=== PATIENT | male | born 1930 | race Caucasian/White ===

== ENCOUNTER 2018-07-18 19:50 | Emergency (ER) | payer OTHER, MEDICAID ==
[~2018-07-18] VITALS: Ht 167.6 cm; Wt 88.5 kg
[2018-07-18 19:52] VITALS: BP 118/70
[2018-07-18] MEDS ORDERED: TAMS0.4C96 PO (19:59)
[2018-07-18] MEDS ORDERED: VITD1000 PO (19:59)
[2018-07-18] MEDS ORDERED: LISI10TA11 PO (19:59)
[2018-07-18] MEDS ORDERED: ATOR40TA PO (19:59)
[2018-07-18] MEDS ORDERED: CARV3.12 PO (19:59)
[2018-07-18] MEDS ORDERED: GABA300C PO (19:59)
[2018-07-18] MEDS ORDERED: IMO2 PO (19:59)
[2018-07-18] MEDS ORDERED: METF500T PO (19:59)
[2018-07-18] MEDS ORDERED: CLOP75TA55 PO (19:59)
[2018-07-18] MEDS ORDERED: KETOROLAC 60 MG/2 ML VIAL IM ONE (21:05)
[2018-07-18 22:20] VITALS: BP 112/69
== END 2018-07-18 22:20 | disposition home or self-care (01) ==
LOC: MED 19:50
DX: N39.0 Urinary tract infection, site not specified (principal); R31.9 Hematuria, unspecified; E11.9 Type 2 diabetes mellitus without complications; I10 Essential (primary) hypertension; Z79.84 Long term (current) use of oral hypoglycemic drugs; Z79.01 Long term (current) use of anticoagulants; Z79.899 Other long term (current) drug therapy; Z88.0 Allergy status to penicillin; Z95.1 Presence of aortocoronary bypass graft; Z98.890 Other specified postprocedural states; Z96.653 Presence of artificial knee joint, bilateral
CPT/HCPCS: 81002; 96372; 99284; J1885

== ENCOUNTER 2018-07-26 22:19 | Emergency (ER) | payer OTHER, MEDICAID ==
[~2018-07-26] VITALS: Ht 170.2 cm; Wt 77.1 kg
[2018-07-26 22:19] VITALS: BP 216/106
[~2018-07-26 22:19] MED LIST: ATOR40TA PO; CARV3.12 PO; CLOP75TA55 PO; GABA300C PO; IMO2 PO; LISI10TA11 PO; METF500T PO; TAMS0.4C96 PO; VITD1000 PO
[2018-07-26] MEDS: LIDOCAINE JELLY 2% 30 ML TUBE TP ONE (23:01)
[2018-07-27 04:10] VITALS: BP 173/72
== END 2018-07-27 04:10 | disposition home or self-care (01) ==
LOC: MED 22:19
DX: T83.84XA Pain due to genitourinary prosthetic devices, implants and grafts, initial encounter (principal); I10 Essential (primary) hypertension; E11.9 Type 2 diabetes mellitus without complications; Z88.0 Allergy status to penicillin; Z79.84 Long term (current) use of oral hypoglycemic drugs; Z79.899 Other long term (current) drug therapy; Y84.6 Urinary catheterization as the cause of abnormal reaction of the patient, or of later complication, without mention of misadventure at the time of the procedure
CPT/HCPCS: 51702; 81002; 82948; 99284